=== PATIENT | female | born 1990 | race Caucasian/White ===

== ENCOUNTER 2017-01-08 20:41 | Emergency (ER) | payer OTHER ==
[~2017-01-08] VITALS: Ht 175.3 cm; Wt 121.0 kg
[~2017-01-08 20:41] MED LIST: BUTA1CAP PO; TRINTAB7 PO
[2017-01-08 20:51] VITALS: BP 149/90; PULSE 110; RESP 20; TEMP 98.2; O2SAT 97
[2017-01-08] MEDS ORDERED: ONDANSETRON HCL 4 MG/2 ML VIAL IV PUSH ONE (22:15)
[2017-01-08] MEDS ORDERED: SODIUM CHLOR 0.9% 1000 ML INJ 1,000 ML IV SCH (22:15)
[2017-01-08] MEDS ORDERED: SODIUM CHLORIDE 0.9% FLUSH 5 ML FLUSH IVF PRN (22:15)
--- NOTE | 2017-01-08 22:17 | PD ---
HPI Chief Complaint: Chest Pain Time Seen by Provider: 22:09 Travel History International Travel<30 days: No Contact w/Intl Traveler<30days: No Traveled to known affect area: No History of Present Illness HPI 26-year-old female presents to the emergency department for complaint of chest pain, epigastric, and right upper quadrant pain radiating into her back for 2 weeks. Patient states symptoms are present daily. Patient states symptoms are worsened by fried and fatty foods. Patient reports that she did contact her primary care provider who told her she probably has gallbladder disease. Patient rates pain 8/10 in intensity. Patient has had nausea without vomiting. Patient also has noted some mild diarrhea. No other family members with similar symptoms. Patient states she is unable to identify exacerbating or alleviating factors other than fried and fatty foods to make her symptoms worse. Patient denies any injury. Patient has no chest pain or shortness of breath. Patient's had no recent febrile illness or respiratory illness symptoms. Patient denies any flank pain dysuria frequency urgency or hematuria. Patient's last menstrual period was 2 days ago and normal for her. Patient is 2 para 1 AB 1. Patient does take control pills but denies back or use. Patient denies alcohol use. Patient has used ibuprofen without symptom relief. PFSH Past Medical History Narrative Medical Anxiety, , Ab 1; no tobacco use; nursing notes reviewed (review of PMH/PSH: denies dialysis) Anxiety: Yes Dialysis: Yes Diminished Hearing: No Gastrointestinal Disorders: Yes LMP: 01/06/17 : 1 Para: 1 Miscarriage: 0 : 0 Past Surgical History Arteriovenous Shunt: No Section: Yes Gynecologic Surgery: Yes (C/S ) Social History Alcohol Use: No Tobacco Use: No Substance Use: No Allergies-Medications (Allergen,Severity, Reaction): Coded Allergies: No Known Allergies (Verified , 07/02/16) Reported Meds & Prescriptions Reported Meds & Active Scripts Active Fioricet (Pzbuhpqllw-Jngghvhxzthfr-Qervqxvz) 50-300-40 Mg Cap 1-2 Cap PO Q6H PRN Reported Trinessa (Norgestimate-Ethinyl Estradiol) 0.18/0.215/0.25 mg-35 Mcg Tab 1 Tab PO DAILY Review of Systems Except as stated in HPI: all other systems reviewed are Neg General / Constitutional: Positive: Chills, No: Fever HENT: No: Congestion Cardiovascular: Positive: Chest Pain or Discomfort, No: Diaphoresis Respiratory: No: Shortness of Breath Gastrointestinal: Positive: Nausea, Diarrhea, Abdominal Pain, No: Vomiting Genitourinary: No: Urgency, Frequency, Dysuria, Pelvic Pain, Flank Pain, Discharge, Vaginal Bleeding Musculoskeletal: No: Myalgias, Arthralgias Skin: No Rash Neurologic: No: Weakness Psychiatric: Positive: Anxiety Endocrine: No: Heat Intolerance Hematologic/Lymphatic: No: Easy Bruising Physical Exam Narrative GENERAL: Well-developed well-nourished female in no acute distress no respiratory distress SKIN: Warm and dry. HEAD: Normocephalic. EYES: No scleral icterus. No injection or drainage. NECK: Supple, trachea midline. No JVD or lymphadenopathy. CARDIOVASCULAR: Regular rate and rhythm without murmurs, gallops, or rubs. RESPIRATORY: Breath sounds equal bilaterally. No accessory muscle use. GASTROINTESTINAL: Abdomen soft, mild tenderness to direct palpation in the epigastric and right upper quadrant distribution, nondistended. No guarding no rebound. MUSCULOSKELETAL: No cyanosis, or edema. BACK: Nontender without obvious deformity. No CVA tenderness. Data Data Last Documented VS Vital Signs Date Time Temp Pulse Resp B/P Pulse Ox O2 Delivery O2 Flow Rate FiO2 01/09/17 02:40 100 18 113/63 96 Room Air 01/08/17 20:51 98.2 Orders Complete Blood Count With Diff (01/08/17 22:10) Comprehensive Metabolic Panel (01/08/17 22:10) Lipase (01/08/17 22:10) Lactic Acid (01/08/17 22:10) Urinalysis - C+S If Indicated (01/08/17 22:10) Us Abdomen Gallbladder (01/08/17 ) Iv Access Insert/Monitor (01/08/17 22:10) Ecg Monitoring (01/08/17 22:10) Oximetry (01/08/17 22:10) Sodium Chloride 0.9% Flush (Ns Flush) (01/08/17 22:15) Chest, Single Ap (01/08/17 22:10) Ed Urine Pregnancytest Poc (01/08/17 22:10) NPO (01/08/17 22:10) Ondansetron Inj (Zofran Inj) (01/08/17 22:15) Sodium Chlor 0.9% 1000 Ml Inj (Ns 1000 M (01/08/17 22:15) Electrocardiogram (01/08/17 20:53) Ct Abd/Pel W Iv Contrast(Rout) (01/09/17 ) Iohexol 350 Inj (Omnipaque 350 Inj) (01/09/17 03:04) Labs Laboratory Tests Test 01/08/17 22:30 White Blood Count 12.8 TH/MM3 Red Blood Count 4.41 MIL/MM3 Hemoglobin 13.1 GM/DL Hematocrit 37.6 % Mean Corpuscular Volume 85.2 FL Mean Corpuscular Hemoglobin 29.6 PG Mean Corpuscular Hemoglobin 34.7 % Concent Red Cell Distribution Width 12.5 % Platelet Count 347 TH/MM3 Mean Platelet Volume 8.7 FL Neutrophils (%) (Auto) 71.0 % Lymphocytes (%) (Auto) 23.6 % Monocytes (%) (Auto) 4.2 % Eosinophils (%) (Auto) 0.7 % Basophils (%) (Auto) 0.5 % Neutrophils # (Auto) 9.1 TH/MM3 Lymphocytes # (Auto) 3.0 TH/MM3 Monocytes # (Auto) 0.5 TH/MM3 Eosinophils # (Auto) 0.1 TH/MM3 Basophils # (Auto) 0.1 TH/MM3 CBC Comment DIFF FINAL Differential Comment Urine Color YELLOW Urine Turbidity CLEAR Urine pH 6.0 Urine Specific [place] 1.025 Urine Protein NEG mg/dL Urine Glucose (UA) NEG mg/dL Urine Ketones TRACE mg/dL Urine Occult Blood NEG Urine Nitrite NEG Urine Bilirubin NEG Urine Leukocyte Esterase NEG Urine RBC 0-2 /hpf Urine WBC 3-5 /hpf Urine Squamous Epithelial 6-8 /hpf Cells Urine Bacteria OCC /hpf Microscopic Urinalysis Comment CULT NOT INDICATED Sodium Level 141 MEQ/L Potassium Level 4.2 MEQ/L Chloride Level 107 MEQ/L Carbon Dioxide Level 25.3 MEQ/L Anion Gap 9 MEQ/L Blood Urea Nitrogen 14 MG/DL Creatinine 0.82 MG/DL Estimat Glomerular Filtration 84 ML/MIN Rate Random Glucose 97 MG/DL Lactic Acid Level 1.7 mmol/L Calcium Level 8.8 MG/DL Total Bilirubin 0.3 MG/DL Aspartate Amino Transf 27 U/L (AST/SGOT) Alanine Aminotransferase 38 U/L (ALT/SGPT) Alkaline Phosphatase 61 U/L Total Protein 6.9 GM/DL Albumin 3.1 GM/DL Lipase 132 U/L MDM Medical Decision Making Medical Screen Exam Complete: Yes Emergency Medical Condition: Yes Medical Record Reviewed: Yes Interpretation(s) POC hcg: negative lactic acid: 1.7 not elevated UA: values grossly wnl Vital Signs Date Time Temp Pulse Resp B/P Pulse Ox O2 Delivery O2 Flow Rate FiO2 01/09/17 02:40 100 18 113/63 96 Room Air 01/09/17 01:40 77 18 153/85 98 Room Air 01/09/17 00:40 86 18 141/72 98 Room Air 01/08/17 23:40 78 18 148/68 98 Room Air 01/08/17 22:40 18 99 Room Air 01/08/17 22:40 90 18 139/74 97 Room Air 01/08/17 22:30 99 Room Air 01/08/17 20:51 98.2 110 20 149/90 97 CBC & BMP Diagram 01/08/17 22:30 Last Impressions Abdomen/Pelvis CT 01/09/17 0000 Signed Impressions: Service Date/Time: Monday, January 09, 2017 02:57 - CONCLUSION: 1. No evidence of acute abdominal or pelvic process. No masses are identified. Darryl Gresham MD Chest X-Ray 01/08/17 2210 Signed Impressions: Service Date/Time: December 22:40 - CONCLUSION: 1. No acute cardiopulmonary disease. Darryl Gresham MD Gall Bladder Ultrasound 01/08/17 0000 Signed Impressions: Service Date/Time: December 23:18 - CONCLUSION: 1. Limited evaluation secondary body habitus. 2. No gallstones are seen. Nonvisualization of the pancreas Darryl Gresham MD Differential Diagnosis Biliary colic, cholecystitis, choledocholithiasis, pancreatitis, peptic ulcer disease, atypical chest pain, pleurisy, PE Narrative Course IV access obtained specimens collected and sent for resulting gallbladder ultrasound ordered Patient given IV fluids and Zofran Labs resulted and found to be grossly within normal range except for mild elevation of total white cell count lactic acid is in normal range urine test is negative chemistries are grossly within normal range and urinalysis shows no signs of infection and culture is not indicated Ultrasound resulted and noted to have limited results due to body habitus but gallbladder itself is not inflamed and no stones were identified patient continues to complain of pain and desirous of having further evaluation therefore offered CT abdomen and pelvis with IV contrast as final study as no other study available at this time are indicated Patient underwent CT abdomen and pelvis with IV contrast reveals no acute abnormality abdominally work on the pelvis for expiration patient's pain; patient continues to have history and exam consistent with biliary colic. Patient is stable for outpatient management. Diagnosis Primary Impression: Abdominal pain Qualified Code: R10.11 - Right upper quadrant abdominal pain Additional Impression: Biliary colic Referrals: Primary Care Physician call for appointment Patient Instructions: Narcotic given in the ED, General Instructions Departure Forms: Tests/Procedures, Work Release Special Instructions: no work x 1 day Additional Instructions: Follow clear liquid diet for next 12-24 hours advance diet as tolerated bland/ Ashtyn diet then regular diet avoiding fried and fatty foods Take pain medication as prescribed as needed No work times one day Increase fluid hydration Follow-up with your primary care from call office in a.m. to schedule appointment Return to the emergency department for a concerns or change in condition Med/Other Pt SpecificInfo: Prescription(s) given Scripts Ondansetron Odt (Zofran Odt)4 Mg Tab4 Mg SL Q6HR PRN (Nausea/Vomiting) #10 TAB Ref 0 Prov:Rocio Mchugh MD 01/09/17 Hydrocodone-Acetaminophen (Lortab)5-325 Mg Tab1 Tab PO Q6H PRN (PAIN) #10 TAB Ref 0 Prov:Rocio Mchugh MD 01/09/17 Disposition: 01 DISCHARGE HOME Condition: Stable Rocio Mchugh MD Jan 08, 2017 22:17
[2017-01-08 22:30] VITALS: O2SAT 99
[2017-01-08 22:40] VITALS: BP 139/74; PULSE 90; RESP 18; O2SAT 97
[2017-01-08 22:44] LABS: BLOOD, URINE NEG (NEG); GLUCOSE,URINE NEG (NEG); KETONE, URINE TRACE mg/dL (NEG); NITRITE,URINE NEG (NEG)
[2017-01-08 22:46] LABS: AUTOMATED NEUTROPHIL # 9.1 TH/MM3 (1.8-7.7); BASOPHIL # 0.1 TH/MM3 (0-0.2); BASOPHIL % 0.5 % (0.0-2.0); EOSINOPHIL # 0.1 TH/MM3 (0-0.4); EOSINOPHIL % 0.7 % (0.0-4.0); HEMATOCRIT 37.6 % (35.0-46.0); HEMO FLAGS DIFF FINAL; LYMPH % 23.6 % (9.0-44.0); MEAN CELL VOLUME 85.2 FL (80.0-100.0); MEAN CORPUSCULAR HEMOGLOBIN 29.6 PG (27.0-34.0); MEAN CORPUSCULAR HGB CONC 34.7 % (32.0-36.0); MONO % 4.2 % (0.0-8.0); PLATELET COUNT 347 TH/MM3 (150-450); RED BLOOD COUNT 4.41 MIL/MM3 (4.00-5.30); RED CELL DISTRIBUTION WIDTH 12.5 % (11.6-17.2); WHITE BLOOD COUNT 12.8 TH/MM3 (4.0-11.0)
[2017-01-08 22:52] LABS: BACTERIA, URINE OCC /hpf; RBC, URINE 0-2 /hpf (0-3); URINE COLOR YELLOW (YELLW/STRAW)
[2017-01-08 22:53] LABS: COMMENT (UR) CULT NOT INDICATED; CULTURE IF INDICATED CULT NOT INDICATED
[2017-01-08 22:55] LABS: CHLORIDE 107 MEQ/L (98-107); POTASSIUM 4.2 MEQ/L (3.5-5.1); SODIUM (NA) 141 MEQ/L (136-145)
[2017-01-08 23:00] LABS: ANION GAP 9 MEQ/L (5-15); BICARBONATE 25.3 MEQ/L (21.0-32.0); BLOOD UREA NITROGEN 14 MG/DL (7-18)
--- NOTE | 2017-01-08 23:01 | RADHPO ---
EXAM DATE/TIME: 01/08/2017 22:40 [facility] COMPARISON: No previous studies available for comparison. INDICATIONS : Chest pain. MEDICAL HISTORY : None. SURGICAL HISTORY : None. ENCOUNTER: Initial ACUITY: 2 weeks PAIN SCORE: 8/10 LOCATION: Right chest FINDINGS: A single view of the chest demonstrates the lungs to be symmetrically aerated without evidence of mas s, infiltrate or effusion. The cardiomediastinal contours are unremarkable. Osseous structures are intact. CONCLUSION: 1. No acute cardiopulmonary disease. Darryl Gresham MD on January 08, 2017 at 22:59 Board Certified Radiologist. This report was verified electronically.
[2017-01-08 23:03] LABS: ALT (GPT) 38 U/L (10-53); AST (GOT) 27 U/L (15-37); GLOMERULAR FILTRATION RATE 84 ML/MIN (>89)
[2017-01-08 23:04] LABS: TOTAL BILIRUBIN ADULT 0.3 MG/DL (0.2-1.0)
[2017-01-08 23:06] LABS: ALKALINE PHOSPHATASE 61 U/L (45-117)
[2017-01-08 23:40] VITALS: BP 148/68; PULSE 78; RESP 18; O2SAT 98
--- NOTE | 2017-01-09 00:16 | RADHPO ---
EXAM DATE/TIME: 01/08/2017 23:18 [facility] COMPARISON: No previous studies available for comparison. INDICATIONS : Right upper quadrant pain. MEDICAL HISTORY : . Anxiety. SURGICAL HISTORY : section. ENCOUNTER: Initial ACUITY: 2 weeks PAIN SCORE: 1/10 LOCATION: Right upper quadrant MEASUREMENTS: LIVER: 16.7 cm length COMMON DUCT: Non-visualized RIGHT KIDNEY: 11.7 x 5.9 x 5.7 cm FINDINGS: Ultrasound of the upper abdomen demonstrates normal echogenicity of the liver. No intrahepatic or ext ra hepatic ductal dilatation is seen. There is hepatopedal flow through the portal vein. The pancrea s is not visualized secondary to overlying bowel gas. The right kidney is unremarkable. The gallbladd er is normal without wall thickening or pericholecystic fluid. CONCLUSION: 1. Limited evaluation secondary body habitus. 2. No gallstones are seen. Nonvisualization of the pancreas Darryl Gresham MD on January 09, 2017 at 0:14 Board Certified Radiologist. This report was verified electronically.
[2017-01-09 00:40] VITALS: BP 141/72; PULSE 86; RESP 18; O2SAT 98
[2017-01-09 01:40] VITALS: BP 153/85; PULSE 77; RESP 18; O2SAT 98
[2017-01-09 02:40] VITALS: BP 113/63; PULSE 100; RESP 18; O2SAT 96
[2017-01-09] MEDS ORDERED: IOHEXOL 350 MG/ML 10 ML VIAL (for RAD DIAG) IV ONE (03:04)
--- NOTE | 2017-01-09 03:32 | RADHPO ---
EXAM DATE/TIME: 01/09/2017 02:57 [facility] COMPARISON: No previous studies available for comparison. INDICATIONS : Right upper quadrant pain radiating into back for two weeks. IV CONTRAST: 75 cc Omnipaque 350 (iohexol) IV ORAL CONTRAST: No oral contrast ingested. RADIATION DOSE: 22.38 CTDIvol (mGy) MEDICAL HISTORY : None SURGICAL HISTORY : section. ENCOUNTER: Initial ACUITY: 2 weeks PAIN SCALE: 7/10 LOCATION: Right upper quadrant TECHNIQUE: Volumetric scanning of the abdomen and pelvis was performed. Using automated exposure control and ad justment of the mA and/or kV according to patient size, radiation dose was kept as low as reasonably achievable to obtain optimal diagnostic quality images. FINDINGS: Examination of the lung bases demonstrates no abnormality. No pleural fluid is identified. No pulmona ry nodules are present. The liver and spleen are free of focal defects. The gallbladder and pancreas demonstrate no abnormality. The adrenal glands are normal. The kidneys demonstrate no evidence of barbara id renal mass or hydronephrosis. No free fluid or abdominal masses are identified. No para-aortic richard nopathy is seen. Examination of the pelvis demonstrates no evidence of free fluid or pelvic mass. No abnormally enlarg ed inguinal or retroperitoneal lymph nodes are present. The bladder is unremarkable. Examination of t he right lower quadrant demonstrates no abnormality. The appendix is identified and appears normal. CONCLUSION: 1. No evidence of acute abdominal or pelvic process. No masses are identified. Darryl Gresham MD on January 09, 2017 at 3:28 Board Certified Radiologist. This report was verified electronically.
[2017-01-09 04:30] VITALS: BP 142/103; PULSE 91; RESP 18; O2SAT 99
[2017-01-09] MEDS ORDERED: ZOFR4TAB3 SL (05:13)
[2017-01-09] MEDS ORDERED: HYDR-3533 PO (05:13)
[2017-01-09] MEDS ORDERED: KETOROLAC TROMETHAMINE 30 MG/ML (IVP) VIAL IV PUSH ONE (05:15)
[2017-01-09] MEDS ORDERED: MORPHINE SULFATE 4 MG/ML INJ IV PUSH ONE (05:15)
[2017-01-09 05:30] VITALS: BP 153/78; PULSE 78; RESP 18; O2SAT 97
--- NOTE | 2017-01-09 17:05 | EKG ---
Date Performed: 01/08/2017 Time Performed: 20:53:26 PTAGE: 26 years EKG: Sinus rhythm Compared to prior tracing no significant change Normal ECG PREVIOUS TRACING : 07/02/2016 11.25 DOCTOR: Eliel Link Interpretating Date/Time 01/09/2017 16:57:27
== END 2017-01-09 05:47 | disposition home or self-care (01) ==
LOC: PHED 20:41
DX: K80.50 Calculus of bile duct without cholangitis or cholecystitis without obstruction (principal)
CPT/HCPCS: 71010; 74177; 76705; 80053; 81001; 83605; 83690; 84703; 85025; 93005; 96361; 96374; 96375; 99285; J1885; J2405; J7030; Q9967